=== PATIENT | male | born 1945 | race African-American/Black ===

== ENCOUNTER 2018-02-28 22:03 | Emergency (ER) | payer OTHER ==
[~2018-02-28] VITALS: Ht 182.9 cm; Wt 89.6 kg
[~2018-02-28 22:03] MED LIST: FLO4 PO; LIPI10 PO; NOR10 PO; PROS5 PO; ZESTRIL20 MG PO
[2018-02-28 22:05] VITALS: Ht 182.9 cm; Wt 89.6 kg
[2018-02-28 22:56] VITALS: BP 120/80
== END 2018-02-28 22:56 | disposition home or self-care (01) ==
LOC: ED 22:03
DX: T83.038A Leakage of other urinary catheter, initial encounter (principal); I10 Essential (primary) hypertension; Z90.49 Acquired absence of other specified parts of digestive tract